=== PATIENT | female | born 1960 | race Two or more races ===

== ENCOUNTER 2020-05-20 07:30 | Inpatient (IN) | payer OTHER ==
[~2020-05-20] VITALS: Ht 154.9 cm; Wt 52.2 kg
[~2020-05-20 07:30] MED LIST: AMOX1TAB12 PO; DOLOGEN CAPLET1 EACH PO; LOSARTAN POTASS50 MG
== END 2020-05-24 11:15 | disposition expired | DRG 64 ==
LOC: ER 07:30 → SEC-K 05-21 09:48
PROVIDERS: ADMIT Internal Medicine; ATTEND Internal Medicine
PROC: 0BH17EZ Insertion of Endotracheal Airway into Trachea, Via Natural or Artificial Opening (ICD-10-PCS; principal; 2020-05-20)
PROC: 5A1945Z Respiratory Ventilation, 24-96 Consecutive Hours (ICD-10-PCS; 2020-05-20)
PROC: 4A033R1 Measurement of Arterial Saturation, Peripheral, Percutaneous Approach (ICD-10-PCS; 2020-05-20)
PROC: B24BZZZ Ultrasonography of Heart with Aorta (ICD-10-PCS; 2020-05-22)
DX: I61.8 Other nontraumatic intracerebral hemorrhage (principal); G93.6 Cerebral edema; G40.89 Other seizures; I60.9 Nontraumatic subarachnoid hemorrhage, unspecified; G43.809 Other migraine, not intractable, without status migrainosus; I10 Essential (primary) hypertension; R40.2434 Glasgow coma scale score 3-8, 24 hours or more after hospital admission; Z20.822 Contact with and (suspected) exposure to COVID-19